=== PATIENT | male | born 1970 | race African-American/Black ===

== ENCOUNTER 2019-03-14 09:09 | Emergency (ER) | payer SELFPAY ==
--- NOTE | 2019-03-14 09:46 | ER Document Report ---
ED Medical Screen (RME) - General Chief Complaint: Sore Throat Stated Complaint: SORE THROAT/HEADACHE Time Seen by Provider: 03/14/19 09:33 Primary Care Provider: BETY HIGGINS MD [Primary Care Provider] - Follow up as needed Mode of Arrival: Ambulatory Information source: Patient Notes: 48-year-old male patient presented to the emergency department with cough, conge stion, sore throat, back pain and fever. Patient reports he thinks he has pneumonia. Patient reports history of pneumonia. States he has been sick for about 2 to 3 days. Exam: Rhonchi noted bilaterally, no obvious wheezes or respiratory distress. I have greeted and performed a rapid initial assessment of this patient. A comprehensive ED assessment and evaluation of the patient, analysis of test results and completion of the medical decision making process will be conducted by additional ED providers. I have specifically instructed the patient or family members with the patient to immediately return to any nursing staff should anything change in the patient's condition or with their chief complaint. TRAVEL OUTSIDE OF THE [place] IN LAST 30 DAYS: No - Related Data Allergies/Adverse Reactions: No Known Allergies Allergy (Verified 03/14/19 09:33) Past Medical History - Social History Frequency of alcohol use: Social Drug Abuse: None Pulmonary Medical History: Reports: Hx Pneumonia Past Surgical History: Reports: Hx Orthopedic Surgery - Right knee replacement Physical Exam - Vital signs Vitals: Temp Pulse Resp BP Pulse Ox 99.1 F 99 18 175/100 H 97 03/14/19 09:23 03/14/19 09:23 03/14/19 09:23 03/14/19 09:23 03/14/19 09:23 Course - Vital Signs Vital signs: Temp Pulse Resp BP Pulse Ox 99.1 F 99 18 175/100 H 97 03/14/19 09:23 03/14/19 09:23 03/14/19 09:23 03/14/19 09:23 03/14/19 09:23 Doctor's Discharge - Discharge Referrals: BETY HIGGINS MD [Primary Care Provider] - Follow up as needed
--- NOTE | 2019-03-14 10:19 | RADIOLOGY REPORT (SQ) ---
EXAM DESCRIPTION: CHEST 2 VIEWS COMPLETED DATE/TIME: 03/14/2019 10:07 am REASON FOR STUDY: cough, hx of pneumonia COMPARISON: None. EXAM PARAMETERS: NUMBER OF VIEWS: two views TECHNIQUE: Digital Frontal and Lateral radiographic views of the chest acquired. RADIATION DOSE: NA LIMITATIONS: none FINDINGS: LUNGS AND PLEURA: No dense consolidation. Minimal ill-defined lingular opacities seen bes t on the lateral projection. No pleural effusion or pneumothorax. MEDIASTINUM AND HILAR STRUCTURES: No masses or contour abnormalities. HEART AND VASCULAR STRUCTURES: Heart normal size. No evidence for failure. BONES: No acute findings. HARDWARE: None in the chest. OTHER: No other significant finding. IMPRESSION: No dense consolidation or significant effusion. Minimal ill-defined lingular opacities, possibly pneumonia. TECHNICAL DOCUMENTATION: JOB ID: [id number] [employer]- All Rights Reserved Reading location - IP/workstation name: [email or web address]
[2019-03-14 10:23] LABS: A TYPE INFLUENZA AG NEGATIVE (NEGATIVE); B INFLUENZA AG NEGATIVE (NEGATIVE)
--- NOTE | 2019-03-14 11:39 | ER Document Report ---
ED General - General Chief Complaint: Sore Throat Stated Complaint: SORE THROAT/HEADACHE Time Seen by Provider: 03/14/19 09:33 Primary Care Provider: BETY HIGGINS MD [ACTIVE STAFF] - Follow up as needed Mode of Arrival: Ambulatory Notes: 48-year-old male presents with cough with mucus, congestion, sore throat, fever for the past 2 to 3 days. Patient has a history of pneumonia and states this feels similar to that. Patient denies any chest pain, shortness of breath, nausea/vomiting, abdominal pain. TRAVEL OUTSIDE OF THE [place] IN LAST 30 DAYS: No - Related Data Allergies/Adverse Reactions: No Known Allergies Allergy (Verified 03/14/19 09:33) Past Medical History - General Information source: Patient - Social History Smoking Status: Current Every Day Smoker Frequency of alcohol use: Social Drug Abuse: None Family History: Reviewed & Not Pertinent Patient has suicidal ideation: No Patient has homicidal ideation: No Pulmonary Medical History: Reports: Hx Pneumonia Past Surgical History: Reports: Hx Orthopedic Surgery - Right knee replacement Review of Systems - Review of Systems Notes: Constitutional: Positive for fever. HENT: Positive for sore throat and congestion. Eyes: Negative for visual changes. Cardiovascular: Negative for chest pain. Respiratory: Positive for cough. Negative for shortness of breath. Gastrointestinal: Negative for abdominal pain, vomiting or diarrhea. Genitourinary: Negative for dysuria. Musculoskeletal: Negative for back pain. Skin: Negative for rash. Neurological: Negative for headaches, weakness or numbness. 10 point ROS negative except as marked above and in HPI. Physical Exam - Vital signs Vitals: Temp Pulse Resp BP Pulse Ox 99.1 F 99 18 175/100 H 97 03/14/19 09:23 03/14/19 09:23 03/14/19 09:23 03/14/19 09:23 03/14/19 09:23 - Notes Notes: GENERAL: Well-appearing, well-nourished and in no acute distress. HEAD: Atraumatic, normocephalic. EYES: Extraocular movements intact, sclera anicteric, conjunctiva are normal. ENT: TMs normal, nares patent, oropharynx clear without exudates. Uvula midline without edema. 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 No muffled voice. No trismus. Moist mucous membranes. NECK: Normal range of motion, supple without lymphadenopathy or JVD. LUNGS: Breath sounds clear to auscultation bilaterally and equal. No wheezes rales or rhonchi. HEART: Regular rate and rhythm without murmurs, rubs or gallops. ABDOMEN: Soft, nontender. No guarding, no rebound. No masses appreciated. EXTREMITIES: Normal range of motion, no pitting or edema. No clubbing or cyanosis. NEUROLOGICAL: Cranial nerves II through XII grossly intact. Normal speech, normal gait. PSYCH: Normal mood, normal affect. SKIN: Warm, Dry, normal turgor, no rashes or lesions noted. Course - Re-evaluation Re-evalutation: 03/14/19 48-year-old male presents with cough, congestion, sore throat, fever for the past 2 to 3 days. Patient has a history of pneumonia and states this feels similar. Patient is afebrile and ER. Patient has noted nasal congestion. Lungs are clear to auscultation bilaterally. Regular rate and rhythm. Patient is hypertensive but does not appear to have a history of same. Patient's chest x-ray shows possible pneumonia so patient will be treated. A copy of this report was also given to patient. Discussed all results with patient. Patient also given symptomatic relief. Patient's flu and strep are both negative. Patient given close follow-up with PCP. Strict return precautions given. Patient voices understanding and agrees with plan of care. - Vital Signs Vital signs: Temp Pulse Resp BP Pulse Ox 99.1 F 99 18 175/100 H 97 03/14/19 09:23 03/14/19 09:23 03/14/19 09:23 03/14/19 09:23 03/14/19 09:23 Discharge - Discharge Clinical Impression: Acute URI Pneumonia Qualifiers: Pneumonia type: due to unspecified organism Laterality: unspecified laterality Lung location: unspecified part of lung Qualified Code(s): J18.9 - Pneumonia, unspecified organism Condition: Stable Disposition: HOME, SELF-CARE Instructions: Acetaminophen, Sore Throat ([facility]), Upper Respiratory Illness ([facility]) Additional Instructions: Your chest x-ray showed possible pneumonia. Please take azithromycin and finish all doses even if you feel better. Please take Lainey and Flonase for symptom relief. Please take Tessalon Perles as needed for cough. For sore throat please take a spoonful of honey, Chloraseptic spray [id number], gargle salt water, teas. Return to ER immediately if you start having any worsening symptoms, including fever, coughing up blood, chest pain, shortness of breath, abdominal pain, nausea/vomiting, or any other symptoms that are concerning to you. Follow-up with your primary care doctor or 1 of the clinics listed in 3 to 5 days. Prescriptions: Benzonatate [Tessalon Perle 100 mg Capsule] 100 mg PO Q8HP PRN #40 cap PRN Reason: Fexofenadine HCl [Lainey Allergy] 180 mg PO DAILY #20 tablet Fluticasone Propionate [Flonase Nasal [place] 50 Mcg/[place] 16 gm] 2 sprays NASL Q12 #1 inhaler Azithromycin [Zithromax 250 mg Tablet] 250 mg PO ASDIR PRN #6 tablet PRN Reason: Referrals: BETY HIGGINS MD [ACTIVE STAFF] - Follow up in 3-5 days AFTAB BARRERA MD [COMMUNITY BASED STAFF] - Follow up as needed [facility] [Provider Group] - Follow up as needed
[2019-03-14 12:04] VITALS: BP 156/88
== END 2019-03-14 12:05 | disposition home or self-care (01) ==
LOC: ER 09:09
DX: J18.9 Pneumonia, unspecified organism (principal); J06.9 Acute upper respiratory infection, unspecified; R50.9 Fever, unspecified; F17.200 Nicotine dependence, unspecified, uncomplicated; Z96.651 Presence of right artificial knee joint
CPT/HCPCS: 71046; 87070; 87077; 87804; 87880; 99283

== ENCOUNTER 2019-03-20 10:24 | Emergency (ER) | payer SELFPAY ==
[2019-03-20 10:45] VITALS: BP 159/94
[2019-03-20] MEDS ORDERED: DEXAMETHASONE SOD PHOS INJ 10 MG/1 ML VIAL IM ONE (10:48)
--- NOTE | 2019-03-20 10:53 | ER Document Report ---
HPI - HPI Time Seen by Provider: 03/20/19 10:46 Pain Level: 4 Notes: Patient is a 48-year-old male no significant past medical history who was seen here about 5 days ago and was diagnosed with probable pneumonia and was given Zithromax. Patient states that he had a sore throat at that time and continues to have a sore throat. Patient states that the cough has improved otherwise. He is able to eat and drink without difficulty, but does have decreased p.o. intake because of the soreness in his throat. He is urinating normally. Denies drug allergies. Denies any headache, fever, neck pain, URI, chest pain, palpitations, syncope, cough, shortness of breath, wheeze, dyspnea, abdominal pain, nausea/vomiting/diarrhea, urinary retention, dysuria, hematuria, or rash. - ROS Systems Reviewed and Negative: Yes All other systems reviewed and negative Past Medical History - Social History Smoking Status: Current Some Day Smoker Family History: Reviewed & Not Pertinent Patient has suicidal ideation: No Patient has homicidal ideation: No Pulmonary Medical History: Reports: Hx Pneumonia Past Surgical History: Reports: Hx Orthopedic Surgery - Right knee replacement Vertical Provider Document - CONSTITUTIONAL Agree With Documented VS: Yes Notes: PHYSICAL EXAMINATION: GENERAL: Well-appearing, well-nourished and in no acute distress. A&Ox4. Answers questions appropriately. Moves comfortably w/o notable distress HEAD: Atraumatic, normocephalic. EYES: Pupils equal round and reactive to light, extraocular movements intact, sclera anicteric, conjunctiva are normal. ENT: EAC clear b/l. TM's intact b/l without erythema, fluid, or perforation. Nares patent and without discharge. oropharynx mild erythema without exudates. 2+ tonsilar hypertrophy with erythema no exudate. No palatine shift. Uvula midline. No tongue protrusion. No drooling, hoarseness, or airway compromise. Moist mucous membranes. No sinus tenderness. NECK: Normal range of motion, supple without lymphadenopathy. No rigidity/meningismus. LUNGS: Breath sounds clear to auscultation bilaterally and equal. No wheezes rales or rhonchi. No retractions HEART: Regular rate and rhythm without murmurs, rubs, gallops. ABDOMEN: Soft, nontender, nondistended abdomen. No guarding, no rebound. Normal bowel sounds present. No CVA tenderness bilaterally. NEUROLOGICAL: Normal speech, normal gait. PSYCH: Normal mood, normal affect. SKIN: Warm, Dry, normal turgor, no rashes or lesions noted. - INFECTION CONTROL TRAVEL OUTSIDE OF THE [place] IN LAST 30 DAYS: No Course - Re-evaluation Re-evalutation: 03/20/19 10:51 Patient is an afebrile, well-hydrated, 48-year-old male who presents to the emergency department with an strep pharyngitis grown by culture at last visit. He was placed on zithromax for possible pneumonia which improved the cough but does not adequately treat strep. I do suspect that he still has strep clinically as well. Vitals are acceptable without significant tachycardia, tachypnea, or hypoxia. PE is otherwise unremarkable. He is nontoxic-appearing and is tolerating p.o. without difficulty. Lungs are clear to auscultation bilaterally. Decadron given IM. No further labs or imaging warranted at this time. Low suspicion for any meningitis, sepsis, peritonsillar/pharyngeal abscess, respiratory compromise, Grant's, or other emergent systemic condition at this time. Patient is aware this condition can change from initial presentation and he needs to monitor symptoms closely. Conservative measures otherwise for symptoms. Recheck with your PCM in 2-3 days. Return to the ED with any worsening/concerning symptoms otherwise as reviewed in discharge. Patient is in agreement. - Vital Signs Vital signs: Temp Pulse Resp BP Pulse Ox 98.8 F 80 18 159/94 H 99 03/20/19 10:41 03/20/19 10:41 03/20/19 10:41 03/20/19 10:41 03/20/19 10:41 Discharge - Discharge Clinical Impression: Acute streptococcal pharyngitis Condition: Stable Disposition: HOME, SELF-CARE Instructions: Strep Throat ([facility]) Additional Instructions: Maintain adequate fluid intake Take meds as directed Salt water gargles, throat sprays, mouthwash rinse, peroxide gargles tylenol/ibuprofen as needed New toothbrush tomorrow evening over the counter cold medication as needed for symptoms F/u: with your PCM in 2-3 days for a recheck Consider consult with ENT for ongoing/worsening symptoms Return to the ED with any fever, worsening pain, chest pain, neck pain/stiffness, shortness of breath, cough, drooling, trouble swallowing/breathing, abdominal pain, n/v/d, rash, or worsening/concerning symptoms otherwise. Prescriptions: Amoxicillin Trihydrate [Amoxil 875 mg Tablet] 1 tab PO BID #20 tablet Forms: Elevated Blood Pressure Referrals: ALISHA BARRETT DO [ASSOCIATE] - Follow up as needed
== END 2019-03-20 11:10 | disposition home or self-care (01) ==
LOC: ER 10:24
DX: J02.0 Streptococcal pharyngitis (principal); F17.200 Nicotine dependence, unspecified, uncomplicated; Z96.651 Presence of right artificial knee joint
CPT/HCPCS: 99282; 96372; J1100

== ENCOUNTER 2020-01-14 04:15 | Emergency (ER) | payer SELFPAY | END 2020-01-14 04:28 | disposition left against medical advice (07) | LOC: ER 04:15 | DX: Z53.21 Procedure and treatment not carried out due to patient leaving prior to being seen by health care provider (principal) ==